=== PATIENT | female | born 1975 | race Caucasian/White ===

== ENCOUNTER 2017-08-04 14:35 | Emergency (ER) | payer MEDICAID, OTHER ==
[2017-08-04 14:52] VITALS: BP 125/79
[2017-08-04] MEDS ORDERED: Ciproflox/Dexameth OTIC.SUSP* 7.5 ML BTL RIGHT EAR ONE (16:34)
--- NOTE | 2017-08-04 16:57 | ED ---
Throat Pain/Nasal Congestion - HPI Summary HPI Summary: Patient is a 42-year-old female presenting to the ED with a chief complaint of right cerumen impaction 1 month. She denies any decrease of hearing. She endorses a fullness in the ear. Denies any recent illness, cough, congestion, other respiratory complaints. Pain is rated a 2 out of 10 and is constant and throbbing. Denies any other symptoms. Denies any fevers, sweats, chills. On arrival at triage, RN observe the ear and saw no cerumen impaction. Her vital signs are stable on arrival. - History of Current Complaint Chief Complaint: EDEarPain Time Seen by Provider: 08/04/17 14:53 Hx Obtained From: Patient Onset/Duration: Gradual Onset Severity: Moderate Associated Signs And Symptoms: Positive: Negative - Epiglottits Risk Factors Epiglottis Risk Factors: Negative - Allergies/Home Medications Allergies/Adverse Reactions: Allergies Allergy/AdvReac Type Severity Reaction Status Date / Time vancomycin Allergy Rash Verified 08/04/17 15:05 PMH/Surg Hx/FS Hx/Imm Hx Previously Healthy: Yes - Immunization History Hx Pertussis Vaccination: No Immunizations Up to Date: Unable to Obtain/Confirm Infectious Disease History: No Infectious Disease History: Denies: Traveled Outside the [place] in Last 30 Days - Social History Occupation: Employed Full-time Lives: With Family Alcohol Use: None Hx Substance Use: No Substance Use Type: Reports: None 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 Hx Tobacco Use: No Smoking Status (MU): Former Smoker Review of Systems Constitutional: Negative Negative: Fever, Chills, Fatigue, Skin Diaphoresis Eyes: Negative Positive: Ear Ache - right ear Cardiovascular: Negative Respiratory: Negative Genitourinary: Negative Positive: no symptoms reported, see HPI Musculoskeletal: Negative Neurological: Negative All Other Systems Reviewed And Are Negative: Yes Physical Exam Triage Information Reviewed: Yes Vital Signs On Initial Exam: Initial Vitals Temp Pulse Resp BP Pulse Ox 97.2 F 75 20 125/79 96 08/04/17 14:49 08/04/17 14:49 08/04/17 14:49 08/04/17 14:49 08/04/17 14:49 Vital Signs Reviewed: Yes Appearance: Positive: Well-Appearing, No Pain Distress, Well-Nourished Skin: Positive: Warm, Skin Color Reflects Adequate Perfusion Head/Face: Positive: Normal Head/Face Inspection Eyes: Positive: EOMI, HELEN, Conjunctiva Clear ENT: Positive: TM red, Uvula midline, Other - erythema and irritation to the ear canal Neck: Positive: Supple, No Lymphadenopathy Respiratory/Lung Sounds: Positive: Clear to Auscultation, Breath Sounds Present Cardiovascular: Positive: RRR, Pulses are Symmetrical in both Upper and Lower Extremities Neurological: Positive: Normal, Sensory/Motor Intact, Alert, Oriented to Person Place, Time Psychiatric: Positive: Normal Diagnostics - Vital Signs Vital Signs Temp Pulse Resp BP Pulse Ox 08/04/17 14:49 97.2 F 75 20 125/79 96 - Laboratory Lab Statement: Any lab studies that have been ordered have been reviewed, and results considered in the medical decision making process. EENT Course/Dx - Course Course Of Treatment: Patient is evaluated for right ear canal cerumen impaction. On physical exam there is no cerumen which is visible. She states the same and impaction is very deep and we are unable to see it, thus she is requesting a flush of the ear. I have stated this would be worse for the ear as there is no cerumen impaction, but again she becomes argumentative and again is demanding a flush over a breakup of the ED cerumen impaction. RN attempted a 10 cc flush, and states she did not see any cerumen prior to the flush. The canal is irritated, with erythema and shows a small amount of drainage coming from the area of the TM without eardrum perforation. Observed the ear canal after flush, and there remains no change. I have encouraged Ciprodex as she continues to try to flush it at home with hydrogen peroxide and water, and I am concerned with a worsening bacterial infection. Due to the erythema of the canal, the topical steroid is also an necessary. She is referred over to Dr. Rader will call this week for an appointment. She remains argumentative and upset on discharge, stating we are incompetent as we are unable to see the cerumen impaction. - Diagnoses Provider Diagnoses: Irritation of external ear canal Discharge - Discharge Plan Condition: Stable Disposition: HOME Patient Education Materials: Otitis Externa (ED) Referrals: Kaylie Goyal MD [Primary Care Provider] - Joby Rader MD [Medical Doctor] - Additional Instructions: Instill 0.25 mL (0.5 mg) solution (contents of 1 single-dose container) into affected ear twice daily for 7 days
== END 2017-08-04 17:32 | disposition home or self-care (01) ==
LOC: ED 14:35
DX: H61.891 Other specified disorders of right external ear (principal); Z88.3 Allergy status to other anti-infective agents; Z87.891 Personal history of nicotine dependence
CPT/HCPCS: 99282; A9270-GY